=== PATIENT | male | born 1965 | race Two or more races ===

== ENCOUNTER → 2017-02-15 | Outpatient (CLI) | payer OTHER ==
--- NOTE | 2017-02-15 10:01 | RADRPT ---
PROCEDURE: XR bilateral knees. CLINICAL INDICATION: Knee pain TECHNIQUE: AP weightbearing, PA weightbearing, lateral weightbearing and sunrise views of each kne e are available for review. COMPARISON: None available FINDINGS: Right knee: There is mild to moderate osteoarthrosis involving the right patellofemoral compartment and mild ost eoarthrosis involving the medial tibial femoral compartment and the lateral tibial femoral compartme nt .This is associated with joint space narrowing, subchondral sclerosis and osteophytosis. Left knee: There is mild to moderate osteoarthrosis involving the left patellofemoral compartment and mild oste oarthrosis involving the medial tibial femoral compartment and the lateral tibial femoral compartmen t . This is associated with joint space narrowing, subchondral sclerosis and osteophytosis. There is otherwise normal mineralization, architecture and alignment. No fractures are identified. No osseous lesions are identified. The soft tissues are unremarkable. IMPRESSION: Mild to moderate osteoarthrosis involving the right patellofemoral compartment and mild osteoarthros is involving the medial tibial femoral compartment and the lateral tibial femoral compartment Mild to moderate osteoarthrosis involving the left patellofemoral compartment and mild osteoarthrosi s involving the medial tibial femoral compartment and the lateral tibial femoral compartment . RPTAT: [id number] .Ricardo Gary MD, Date Time Electronically viewed and signed by .Ricardo Gary MD, on 02/15/2017 10:01 .B/
== END | disposition home or self-care (01) ==
LOC: HKI 09:09
PROVIDERS: ATTEND Orthopaedic Surgery
DX: M25.561 Pain in right knee (principal); M25.562 Pain in left knee; M17.0 Bilateral primary osteoarthritis of knee
CPT/HCPCS: 73564; G0463